=== PATIENT | male | born 1955 | race Caucasian/White ===

== ENCOUNTER 2020-01-26 12:11 | Emergency (ER) | payer BC ==
[~2020-01-26] VITALS: Ht 177.8 cm; Wt 82.4 kg
[2020-01-26] MEDS ORDERED: LOVA10TA PO (12:24)
[2020-01-26] MEDS ORDERED: FLOM0.4C39 PO (12:24)
[2020-01-26] MEDS ORDERED: GABA-845 PO (12:24)
[2020-01-26] MEDS ORDERED: LISI-542 PO (12:24)
[2020-01-26] MEDS ORDERED: ASPI81TA86 PO (12:24)
[2020-01-26] MEDS ORDERED: MELO15TA28 PO (12:24)
[2020-01-26] MEDS ORDERED: methylPREDNISolone 125MG 2ML VIAL IV ONE (12:30)
[2020-01-26] MEDS ORDERED: FAMOTIDINE INJ 20MG/2ML VIAL (S0028 PER 1) IVP ONE (12:30)
[2020-01-26 12:56] LABS: BASO % 0.5 % (0.0-1.0); EOS # 0.3 10^3/uL (0.0-0.5); EOS % 3.5 % (0.0-3.0); HEMATOCRIT 43.2 % (42.0-52.0); HEMOGLOBIN 14.3 g/dl (13.5-17.5); LYMPH # 2.3 10^3/uL (1.5-5.0); LYMPH % 30.8 % (24.0-44.0); MEAN CORPUSCULAR HEMOGLOBIN 30.9 pg (27.0-33.0); MEAN CORPUSCULAR HGB CONC 33.1 g/dl (32.0-36.5); MEAN CORPUSCULAR VOLUME 93.3 fl (80.0-96.0); MONO # 0.7 10^3/uL (0.0-0.8); MONO % 9.1 % (0.0-5.0); NEUTROPHILS # 4.1 10^3/uL (1.5-8.5); NEUTROPHILS % 55.7 % (36.0-66.0); PLATELET COUNT, AUTOMATED 237 10^3/uL (150-450); RED BLOOD COUNT 4.63 10^6/uL (4.30-6.10); WHITE BLOOD COUNT 7.4 10^3/uL (4.0-10.0)
[2020-01-26 13:10] LABS: BLOOD UREA NITROGEN 16 MG/DL (7-18); CALCIUM LEVEL 8.6 MG/DL (8.8-10.2); CARBON DIOXIDE LEVEL 28 MEQ/L (21-32); CHLORIDE LEVEL 109 MEQ/L (98-107); CREATININE FOR GFR 1.03 MG/DL (0.70-1.30); GLOMERULAR FILTRATION RATE > 60.0 (>49); GLUCOSE, FASTING 101 MG/DL (70-100); POTASSIUM SERUM 4.1 MEQ/L (3.5-5.1); SODIUM LEVEL 139 MEQ/L (136-145)
[2020-01-26 14:59] VITALS: BP 141/88
--- NOTE | 2020-02-02 11:19 | ECGEPIP ---
[facility] - ED Test Date: 2020-01-26 Pat Name: KARMA THOMAS Department: Room: - Gender: Male [employer] P[employer] Operator: JIM : 1955 Requested By: JAISON Kaufman Order Number: [id number] Reading MD: Patricia Mayer Measurements Intervals [place] Rate: 59 P: 37 MD: 185 QRS: 24 QRSD: 108 T: 42 QT: 401 QTc: 399 Interpretive Statements SINUS BRADYCARDIA BORDERLINE ECG SEE SCANNED DOWNTIME REPORT
== END 2020-01-26 15:00 | disposition home or self-care (01) ==
LOC: M ED 12:11
DX: T63.441A Toxic effect of venom of bees, accidental (unintentional), initial encounter (principal); S60.861A Insect bite (nonvenomous) of right wrist, initial encounter; S60.862A Insect bite (nonvenomous) of left wrist, initial encounter; R40.0 Somnolence; X58.XXXA Exposure to other specified factors, initial encounter; Y92.89 Other specified places as the place of occurrence of the external cause; M54.9 Dorsalgia, unspecified; F10.20 Alcohol dependence, uncomplicated; F17.200 Nicotine dependence, unspecified, uncomplicated; Z91.030 Bee allergy status; Z88.5 Allergy status to narcotic agent; Z79.899 Other long term (current) drug therapy; Z79.82 Long term (current) use of aspirin
CPT/HCPCS: 80048; 85025; 93005; 93041; 94760; 96374; 96375; 99284; J2930